=== PATIENT | female | born 1980 | race Caucasian/White ===

== ENCOUNTER 2023-10-22 21:02 | Emergency (ER) | payer MEDICAID ==
[~2023-10-22] VITALS: Ht 160 cm; Wt 87.8 kg
[2023-10-22 21:11] VITALS: PULSE 75
[2023-10-22 21:12] VITALS: BP 136/93; RESP 16; O2SAT 100
[2023-10-22 21:32] LABS: BASOPHILS % 0.7 % (0.0-2.0); EOSINOPHILS % 1.9 % (0.0-5.0); HEMATOCRIT. 33.6 % (36.0-48.0); HEMOGLOBIN. 11.1 g/dL (12.0-16.0); LYMPHOCYTES % 28.9 % (20.0-50.0); MEAN CORPUSCULAR HEMOGLOBIN 27.7 pg (28.0-32.0); MEAN CORPUSCULAR HGB CONC 33.1 g/dL (31.0-37.0); MEAN CORPUSCULAR VOLUME 83.7 fL (81.0-99.0); MEAN PLATELET VOLUME 7.2 fl (7.4-10.4); MONOCYTES % 6.1 % (2.0-8.0); NEUTROPHILS % 62.4 % (40.0-76.0); PLATELET 385 x1000/uL (130-400); RED BLOOD CELL COUNT 4.01 mill/uL (4.2-5.4); RED CELL DISTRIBUTION WIDTH 14.5 % (11.6-14.6); WHITE BLOOD COUNT 11.6 x1000/uL (4.5-11.0)
[2023-10-22 21:43] LABS: CHLORIDE 104 mEq/L (98-107); SODIUM 136 mEq/L (136-145)
[2023-10-22 21:43] LABS: CLARITY URINE CLEAR (CLEAR); COLOR URINE YELLOW (YELLOW); GLUCOSE URINE NEGATIVE (NEGATIVE); KETONES URINE NEGATIVE (NEGATIVE); LEUKOCYTE ESTERASE URINE NEGATIVE (NEGATIVE); NITRITE URINE NEGATIVE (NEGATIVE); OCCULT BLOOD URINE NEGATIVE (NEGATIVE); PROTEIN URINE NEGATIVE (NEGATIVE); SPECIFIC GRAVITY URINE 1.007 (1.005-1.030); UROBILINOGEN URINE 0.2 E.U./dL (0.2-1.0)
[2023-10-22 21:44] LABS: CARBON DIOXIDE 25 mEq/L (21-32)
[2023-10-22 21:45] LABS: CALCIUM 9.8 mg/dL (8.7-10.4)
[2023-10-22 21:49] LABS: CREATININE 0.6 mg/dL (0.6-1.0); GLUCOSE 88 mg/dL (70-105); UREA NITROGEN BLOOD 7 mg/dL (9-23)
[2023-10-22 21:55] LABS: TROPONIN I HIGH SENSITIVITY < 4 ng/L (3.0-34)
[2023-10-22] MEDS ORDERED: ACETAMINOPHEN 325MG TABLET PO ONE (22:45)
[2023-10-22] MEDS ORDERED: METOCLOPRAMIDE HCL 10MG TABLET PO ONE (22:45)
[2023-10-23] MEDS ORDERED: ACET-2708 MT (02:33)
[2023-10-23] MEDS ORDERED: METO-293 MT (02:33)
[2023-10-23 03:00] VITALS: TEMP 97.6
[2023-10-23] MEDS: METOCLOPRAMIDE HCL 10MG TABLET PO NR (03:00)
[2023-10-23] MEDS: ACETAMINOPHEN 325MG TABLET PO NR (03:00)
== END 2023-10-23 03:24 | disposition home or self-care (01) ==
LOC: ER 21:02
DX: R51.9 Headache, unspecified (principal); R07.89 Other chest pain; Z98.890 Other specified postprocedural states
CPT/HCPCS: 99285; 70450; 71045; 80048; 81003; 85025; 84484; 36415; 93005; J8597